=== PATIENT | male | born 1995 ===

== ENCOUNTER 2017-02-01 10:46 | Emergency (ER) | payer BC ==
[2017-02-01 10:56] VITALS: RESP 16; O2SAT 98
--- NOTE | 2017-02-01 11:37 | CPEKG ---
Heart Rate: 47 RR Interval: 1277 P-R Interval: 148 QRSD Interval: 104 QT Interval: 428 QTC Interval: 379 P [place]: 61 QRS [place]: 76 T Wave [place]: 45 EKG Severity - OTHERWISE NORMAL ECG - EKG Impression: SINUS BRADYCARDIA Electronically Signed By: Bina Preston 01-Feb-2017 15:19:54
[2017-02-01 12:02] LABS: % IMMATURE GRANULYOCYTES 0.3 % (0.0-1.1); ABSOLUTE IMMATURE GRANULOCYTES 0.02 10^3/uL (0.00-0.10); ADD DIFF? NO; ADD MORPH? NO; ADD SCAN? NO; ATYPICAL LYMPHOCYTE FLAG 10 (0-99); FRAGMENT RBC FLAG 0 (0-99); HEMATOCRIT 46.1 % (40.0-51.0); HEMOGLOBIN 15.9 g/dL (13.7-17.5); LEFT SHIFT FLG 0 (0-99); LIPEMIA HEMOLYSIS FLAG 90 (0-99); MEAN CELL HEMOGLOBIN 30.8 pg (27.9-34.1); MEAN CELL HEMOGLOBIN CONCENTR. 34.5 g/dL (32.4-36.7); MEAN CELL VOLUME 89.3 fL (81.5-99.8); MEAN PLATELET VOLUME 10.3 fL (8.7-11.7); PLATELET CLUMPS FLAG 0 (0-99); PLATELET COUNT 286 10^3/uL (150-400); RED BLOOD CELL COUNT 5.16 10^6/uL (4.40-6.38); RED CELL DISTRIBUTION WIDTH 12.3 % (11.5-15.2)
[2017-02-01 12:22] LABS: ANION GAP 12 mEq/L (8-16); CALCIUM 10.8 mg/dL (8.5-10.4); CARBON DIOXIDE 27 mEq/l (22-31); CHLORIDE 103 mEq/L (97-110); CREATININE 0.9 mg/dL (0.7-1.3); GLOMERULAR FILTRATION RATE > 60; GLUCOSE 91 mg/dL (70-100); POTASSIUM 4.4 mEq/L (3.5-5.2); SODIUM 142 mEq/L (134-144)
--- NOTE | 2017-02-01 12:29 | EDPHY ---
H & P Stated Complaint: hit head 2 days ago, leaving country, concussion symptoms Time Seen by Provider: 02/01/17 11:25 HPI/ROS: Chief complaint: Passed out, head injury History of present illness: This is a 21-year-old male who presents to the emergency department for evaluation after passing out and injuring his head. This occurred 2 days ago. Patient graduated from college 2 days ago. He states he was out sitting in the sun all day long. He was not hydrating. He went home, got lightheaded and fell down striking his head against the ground. He has noted a black eye around the left eye. He states he generally feels well without specific complaint. No report of paresthesias, no weakness or paralysis, no bowel or bladder dysfunction. No report of pain to or trauma to the neck, back, chest, abdomen, pelvis or extremities. Review of systems: A 10 point review of systems was obtained and other than described above was negative - Personal History Current Tetanus/Diphtheria Vaccine: Yes Current Tetanus Diphtheria and Acellular Pertussis (TDAP): Yes - Medical/Surgical History Hx Asthma: No Hx Chronic Respiratory Disease: No Hx Diabetes: No Hx Cardiac Disease: No Hx Renal Disease: No Hx Cirrhosis: No Hx Alcoholism: No Hx HIV/AIDS: No Hx Splenectomy or Spleen Trauma: No Other PMH: pmh:none. psh:dental - Social History Smoking Status: Never smoked - Physical Exam Exam: General Appearance: Alert, nontoxic. Eyes: Pupils equal and round no pallor or injection. ENT, Mouth: Mucous membranes moist. Respiratory: There are no retractions, lungs are clear to auscultation. Cardiovascular: Regular rate and rhythm. Gastrointestinal: Abdomen is soft and nontender, no masses, bowel sounds normal. Neurological: Alert and oriented x4. Cranial nerves 2-12 grossly intact. Strength and sensation intact and symmetrical. Patient ambulating without difficulty. Skin: Warm and dry, no rashes. Musculoskeletal: Head is atraumatic. Spine is nontender without crepitus, bony deformity or step-off. Chest wall intact to palpation. Patient moving all extremities without difficulty. Psychiatric: Patient is oriented X 3, there is no agitation. Constitutional: Initial Vital Signs Temperature (C) 36.5 C 02/01/17 10:53 Heart Rate 50 L 02/01/17 10:53 Respiratory Rate 16 02/01/17 10:53 Blood Pressure 134/82 H 02/01/17 10:53 O2 Sat (%) 98 02/01/17 10:53 O2 Delivery Mode Room Air Allergies/Adverse Reactions: No Known Allergies Allergy (Unverified 02/01/17 10:56) Home Medications: Medication Instructions Recorded NK [No Known Home Meds] 02/01/17 Medical Decision Making - Diagnostics Imaging Results: Imaging Impressions Head CT 02/01/17 11:30 Impression: 1. No significant intracranial abnormality seen. Findings discussed with SAMMY Bennett at 12:15 hour, 02/01/2017. ED Course/Re-evaluation: Patient is discussed with my secondary supervising physician Dr. Bina Preston. Patient presents to the emergency department after sustaining a syncopal episode 2 days ago and injuring his head. On presentation he is nontoxic. He does have a black eye. Physical exam is otherwise unremarkable including a nonfocal neurologic exam. Blood studies, EKG and CT scan of the head are negative. My suspicion for serious pathology is low. Patient will be discharged home. Home care is discussed. He is to follow up with a primary care doctor for recheck. Return precautions are given. Patient voiced understanding and agreement with plan. Differential Diagnosis: Included but not limited to hypovolemia, vasovagal, electrolyte disturbances, cardiac disturbances, head injury of multiple etiologies - Data Points Laboratory Results: Laboratory Results 02/01/17 11:51 02/01/17 11:51 02/01/17 02/01/17 11:51 11:51 WBC 6.35 10^3/uL 10^3/uL (3.80-9.50) RBC 5.16 10^6/uL 10^6/uL (4.40-6.38) Hgb 15.9 g/dL g/dL (13.7-17.5) Hct 46.1 % % (40.0-51.0) MCV 89.3 fL fL (81.5-99.8) MCH 30.8 pg pg (27.9-34.1) MCHC 34.5 g/dL g/dL (32.4-36.7) RDW 12.3 % % (11.5-15.2) Plt Count 286 10^3/uL 10^3/uL (150-400) MPV 10.3 fL fL (8.7-11.7) Neut % (Auto) 41.9 % % (39.3-74.2) Lymph % (Auto) 45.4 % H % (15.0-45.0) [place] % (Auto) 9.6 % % (4.5-13.0) Eos % (Auto) 1.9 % % (0.6-7.6) Baso % (Auto) 0.9 % % (0.3-1.7) Nucleat RBC Rel Count 0.0 % % (0.0-0.2) Absolute Neuts (auto) 2.66 10^3/uL 10^3/uL (1.70-6.50) Absolute Lymphs (auto) 2.88 10^3/uL 10^3/uL (1.00-3.00) Absolute Monos (auto) 0.61 10^3/uL 10^3/uL (0.30-0.80) Absolute Eos (auto) 0.12 10^3/uL 10^3/uL (0.03-0.40) Absolute Basos (auto) 0.06 10^3/uL 10^3/uL (0.02-0.10) Absolute Nucleated RBC 0.00 10^3/uL 10^3/uL (0-0.01) Immature Gran % 0.3 % % (0.0-1.1) Immature Gran # 0.02 10^3/uL 10^3/uL (0.00-0.10) Sodium 142 mEq/L mEq/L (134-144) Potassium 4.4 mEq/L mEq/L (3.5-5.2) Chloride 103 mEq/L mEq/L (97-110) Carbon Dioxide 27 mEq/l mEq/l (22-31) Anion Gap 12 mEq/L mEq/L (8-16) BUN 14 mg/dL mg/dL (7-23) Creatinine 0.9 mg/dL mg/dL (0.7-1.3) Estimated GFR > 60 Glucose 91 mg/dL mg/dL (70-100) Calcium 10.8 mg/dL H mg/dL (8.5-10.4) Phosphorus 4.1 mg/dL mg/dL (2.5-4.5) Departure - Departure Disposition: Home, Routine, Self-Care Clinical Impression: Syncope Qualifiers: Syncope type: unspecified Qualified Code(s): R55 - Syncope and collapse Head injury Qualifiers: Encounter type: initial encounter Qualified Code(s): S09.90XA - Unspecified injury of head, initial encounter Condition: Good Instructions: Syncope (ED), Head Injury (ED) Additional Instructions: Follow-up with a primary care doctor for recheck If symptoms worsen or new symptoms develop return to the emergency room for recheck Referrals: NONE *PRIMARY CARE P,. [Primary Care Provider] - As per Instructions Desi Wu MD [Medical Doctor] - As per Instructions
[2017-02-01 13:20] VITALS: BP 146/83; PULSE 54; TEMP 97.9
== END 2017-02-01 13:37 | disposition home or self-care (01) ==
DX: S09.90XA Unspecified injury of head, initial encounter (principal); R55 Syncope and collapse; W18.09XA Striking against other object with subsequent fall, initial encounter; Y92.009 Unspecified place in unspecified non-institutional (private) residence as the place of occurrence of the external cause